=== PATIENT | female | born 1980 ===

== ENCOUNTER 2018-09-24 22:55 | Inpatient (IN) | payer BC ==
[2018-09-24] MEDS ORDERED: OXYTOCIN/RINGERS LACTATE 1,000 ML IV PRN (23:51)
[2018-09-24] MEDS ORDERED: AMMONIA AROMATIC 1 EACH AMP IH PRN (23:51)
[2018-09-24] MEDS ORDERED: IBUPROFEN 600 MG TAB PO PRN (23:51)
[2018-09-24] MEDS ORDERED: MISOPROSTOL 200 MCG TAB PO PRN (23:51)
[2018-09-24] MEDS ORDERED: LIDOCAINE 1% 300 MG/30 ML SDV SC PRN (23:51)
[2018-09-24] MEDS ORDERED: EPSOM SALT 454 GM TP PRN (23:51)
[2018-09-24] MEDS ORDERED: OLIVE OIL 118 ML BTL MISC PRN (23:51)
[2018-09-24] MEDS ORDERED: TERBUTALINE SULFATE 1 MG/ML VIAL IV PRN (23:51)
--- NOTE | 2018-09-24 23:51 | PDGENHP ---
History and Physical History and Physical: Care: [facility] HPI: Julito Chiu is a 37yo with IUP @ 41-2 weeks that presents to L&D from [facility] for SROM with no active labor and desire for pain management. EDC: 09/15/18 which is based on LMP which is known and consistent with Ultrasound at 13 weeks. Her is complicated by: AMA, hypothyroid Review of Systems: Constitutional: Denies any fever, chills, or fatigue HEENT: denies any visual changes, difficulty swallowing, hearing loss Cardiovascular: Denies any chest pain, palpitations, leg swelling Respiratory: denies any cough, wheezing, or shortness of breathe GI: Denies any nausea, vomiting, diarrhea, constipation : denies any dysuria, urgency, frequency, vaginal bleeding Musculoskeletal: denies any muscle or bone pain Skin: denies any rashes Neuro: denies any headache, seizures, lightheadedness, dizziness, or loss of consciousness Psychiatric: denies any depression, anxiety, or SI/HI thoughts HISTORY: Previous OB history: G1 Past medical history: hypothyroid Past surgical history: none Social: Denies any alcohol, tobacco, or drug use. - [employer]; currently PhD student Family history: mother: breast CA Medications: PNV, Synthroid Allergies (list reaction): NKDA LABS: Rh: B+ ABS: Neg Rubella: Immune HbsAg: NR HIV: NR VDRL: NR 1hr: 104 GC: Neg Chlamydia: Neg Pap: Normal GBS: negative PHYSICAL EXAM: Constitutional: WN, A&Ox3 HEENT: normocephalic atraumatic, supple Skin: Warm, dry, intact Heart: RRR, no murmur Chest: CTA-B Abdomen: Soft, nontender, gravid SVE: 1/100/-2 (per CNM at [facility]) Extremities: no edema, negative homans sign Neuro: grossly normal Psych: normal affect assessment: FHT baseline 130 +accels, variable decels, moderate variability Contractions: toco q q6 Assessment: * [id number] with IUP@41-2wks * SROM with no labor * GBS Negative * Cat 1 FHR tracing Plan: * Admit to L&D * pain management PRN * cont EFM * pitocin augmentation * reassess 2-4hr/PRN Today's visit was approximately 30 min, of which >50% of visit 20 min, was spent face to face with pt on direct counseling/coordination of care.
[2018-09-25 00:03] LABS: PLATELET COUNT 210 10^3/uL (150-400)
[2018-09-25] MEDS ORDERED: LR 500 ML IV PRN (00:46)
--- NOTE | 2018-09-25 00:50 | OBPROG ---
Labor Progress Note Assessment/Plan: Assessment: [id number] with IUP@ 41-3wks SROM without labor GBS Negative cat 1 FHR Tracing Plan: AJAY per pt request pitocin per protocol reassess PRN 09/25/18 00:47 Subjective/Intrapartum Course: 09/25/18 00:48 Pt states pain with contractions 11/25, desires AJAY. Agreeable to pitocin augmentation. Objective: 09/24/18 23:50 Patient ABO/Rh B POSITIVE 09/24/18 23:50 - Contraction Pattern Assessment Current Contraction Pattern: Regular - FHR Assessment Begum FHR (bpm): 130 FHR Pattern Variability: Moderate FHR Category: 1 Oxytocin Orders Assessment - Pre-Induction/Augmentation Assessment Gestational Age: 41 week(s) and 3 day(s) ICD10 Worksheet Patient Problems: Problems Problem Status Onset Labor and delivery, indication for care Acute - ICD10 Problem Qualifiers (1) Labor and delivery, indication for care
[2018-09-25] MEDS ORDERED: AMMONIA AROMATIC 1 EACH AMP IH ONE (00:52)
[2018-09-25] MEDS ORDERED: OLIVE OIL 118 ML BTL MISC ONE (00:52)
[2018-09-25] MEDS ORDERED: LIDOCAINE 1% 300 MG/30 ML SDV ONE (00:52)
[2018-09-25] MEDS ORDERED: OXYTOCIN 10 UNIT/ML VIAL ONE (00:53)
[2018-09-25] MEDS ORDERED: TERBUTALINE SULFATE 1 MG/ML VIAL ONE (00:53)
[2018-09-25] MEDS ORDERED: MISOPROSTOL 200 MCG TAB ONE (00:53)
[2018-09-25] MEDS ORDERED: OXYTOCIN/RINGERS LACTATE 500 ML IV SCH (01:00)
[2018-09-25] MEDS ORDERED: fentaNYL 100 MCG/2 ML INJ ONE ×2 (01:13→13:36)
[2018-09-25] MEDS ORDERED: fentaNYL 2MCG/ML/BUP 0.1% RTU 100 ML BAG EP ONE (01:13)
[2018-09-25] MEDS ORDERED: BUPIVACAINE 0.5% 30 ML SDV ONE (01:14)
[2018-09-25] MEDS ORDERED: PHENYLEPHRINE HCL 100 MCG/ML SYR ONE (01:14)
--- NOTE | 2018-09-25 02:18 | PDANEPAE ---
ANE Past Medical History - Pulmonary History Hx Sleep Apnea: No - Endocrine History Hx Diabetes: No - Chronic Pain History Chronic Pain: No ANE Review of Systems Review of Systems: ANE Patient History - Allergies Allergies/Adverse Reactions: Sulfa (Sulfonamide Antibiotics) Allergy (Verified 09/24/18 23:51) - Smoking Hx Smoking Status: Former smoker ANE Labs/Vital Signs - Labs Result Diagrams: 09/24/18 23:50 - Vital Signs Height: 167.64 cm Weight: 97.069 kg ANE Physical Exam - Airway Neck exam: FROM Mallampati Score: Class 2 Mouth exam: normal dental/mouth exam - Pulmonary Pulmonary: no respiratory distress - Cardiovascular Cardiovascular: regular rate and rhythym - ASA Status ASA Status: III ANE Anesthesia Plan Anesthesia Plan: epidural Urgent/Emergent Case: Ailyn patricio completed preop but documented later for safe timely pt care
[2018-09-25] MEDS ORDERED: METOCLOPRAMIDE 10 MG/2 ML VIAL IVP PRN ×2 (02:19→15:28)
[2018-09-25] MEDS ORDERED: PHENYLEPHRINE HCL 100 MCG/ML SYR IVP PRN ×2 (02:19→15:28)
[2018-09-25] MEDS ORDERED: LR 500 ML IV SCH (02:30)
[2018-09-25] MEDS ORDERED: fentaNYL 2MCG/ML/BUP 0.1% RTU 100 ML EP SCH (02:30)
[2018-09-25] MEDS: LR 1,000 ML IV PRN ×2 (02:32)
--- NOTE | 2018-09-25 06:35 | OBPROG ---
Labor Progress Note Assessment/Plan: Strip Check: Baseline 135 +accels, occ variable decels, mod BTBV Pt resting. denies any pain. Subjective/Intrapartum Course: 09/25/18 00:48 Pt states pain with contractions 11/25, desires AJAY. Agreeable to pitocin augmentation. Objective: 09/24/18 23:50 Patient ABO/Rh B POSITIVE 09/24/18 23:50 - Contraction Pattern Assessment Current Contraction Pattern: Regular Oxytocin Orders Assessment - Pre-Induction/Augmentation Assessment Gestational Age: 41 week(s) and 3 day(s) ICD10 Worksheet Patient Problems: Problems Problem Status Onset Labor and delivery, indication for care Acute - ICD10 Problem Qualifiers (1) Labor and delivery, indication for care
--- NOTE | 2018-09-25 06:38 | OBPROG ---
Labor Progress Note Assessment/Plan: Assessment: [id number] with IUP@ 41-3wks pitocin augmentation GBS Negative cat 1 FHR Tracing Plan: pitocin off will restart after 15 min and cat 1 FHR tracing reassess 2hr/PRN anticipate Subjective/Intrapartum Course: 09/25/18 00:48 Pt states pain with contractions 7/10, desires AJAY. Agreeable to pitocin augmentation. 09/25/18 06:37 Pt resting, but is still feeling pain with contractions. She states she was able to sleep throughout the night. Agreeable to placement of IUPC/FSE. Objective: 09/24/18 23:50 Patient ABO/Rh B POSITIVE 09/24/18 23:50 - SVE Dilation (cm): 6 Effacement (%): 100 Station: -1 Membranes: AROM (forebag- MSF noted) Amniotic Fluid Color: Meconium Stained - Contraction Pattern Assessment Current Contraction Pattern: Regular - FHR Assessment Begum FHR (bpm): 135 FHR Pattern Variability: Moderate FHR Category: 1 - Procedures Non-surgical Procedures: FSE (internal monitors placed due to prolong decel), IUPC Oxytocin Orders Assessment - Pre-Induction/Augmentation Assessment Gestational Age: 41 week(s) and 3 day(s) ICD10 Worksheet Patient Problems: Problems Problem Status Onset Labor and delivery, indication for care Acute - ICD10 Problem Qualifiers (1) Labor and delivery, indication for care
--- NOTE | 2018-09-25 08:08 | OBPROG ---
Labor Progress Note Assessment/Plan: Assessment: 37 y/o P0 at 41. weeks ega SROM at 1630 on 09/24 Pitocin augmentation /-1 at 0615 - forebag ruptured at that time - mec stained fluid Comfortable with epidural - sleeping Category 1 EFM at this time - previously had prolonged decel and pitocin was discontinued Pitocin restarted and currently at 4 cms - MVUs not adequate at this time Plan: Will continue to increase pitocin as baby tolerates to achieve adequate MVUs Amnioinfusion if indicated Anticipate 09/25/18 07:58 09/25/18 08:11 Subjective/Intrapartum Course: 09/25/18 00:48 Pt states pain with contractions 11/25, desires AJAY. Agreeable to pitocin augmentation. 09/25/18 06:37 Pt resting, but is still feeling pain with contractions. She states she was able to sleep throughout the night. Agreeable to placement of IUPC/FSE. 09/25/18 08:09 Sleeping with epidural in place providing good pain relief Objective: 09/24/18 23:50 Patient ABO/Rh B POSITIVE 09/24/18 23:50 - SVE Dilation (cm): 6 Effacement (%): 100 Station: -1 Membranes: AROM (forebag- MSF noted) Amniotic Fluid Color: Meconium Stained - Contraction Pattern Assessment Current Contraction Pattern: Regular - Procedures Non-surgical Procedures: FSE (internal monitors placed due to prolong decel), IUPC Oxytocin Orders Assessment - Pre-Induction/Augmentation Assessment Gestational Age: 41 week(s) and 3 day(s) ICD10 Worksheet Patient Problems: Problems Problem Status Onset Labor and delivery, indication for care Acute
--- NOTE | 2018-09-25 09:41 | OBPROG ---
Labor Progress Note Assessment/Plan: Assessment: 37 y/o P0 at 41. weeks ega SROM at 1630 on 09/24 Pitocin augmentation 6/100/-1 at 0615 - forebag ruptured at that time - mec stained fluid Comfortable with epidural - sleeping Category 1 EFM at this time - previously had prolonged decel and pitocin was discontinued Pitocin restarted and currently at 4 cms - MVUs not adequate at this time Plan: Will continue to increase pitocin as baby tolerates to achieve adequate MVUs Amnioinfusion if indicated Anticipate 09/25/18 07:58 09/25/18 08:11 09/25/18 09:29 A/P: MVUs 200 range - called to bedside for variable/late FHT decels X several contractions that improved with position change. SVE 8/100/-1. Will continue to monitor, if decels return and are persistent will consider amnioinfusion. Patient remains comfortable with epidural Subjective/Intrapartum Course: 09/25/18 00:48 Pt states pain with contractions 7/10, desires AJAY. Agreeable to pitocin augmentation. 09/25/18 06:37 Pt resting, but is still feeling pain with contractions. She states she was able to sleep throughout the night. Agreeable to placement of IUPC/FSE. 09/25/18 08:09 Sleeping with epidural in place providing good pain relief Objective: 09/24/18 23:50 Patient ABO/Rh B POSITIVE 09/24/18 23:50 - SVE Dilation (cm): 8 Effacement (%): 100 Station: -1 Membranes: AROM (forebag- MSF noted) Amniotic Fluid Color: Meconium Stained - Contraction Pattern Assessment Current Contraction Pattern: Regular - Procedures Non-surgical Procedures: FSE (internal monitors placed due to prolong decel), IUPC Oxytocin Orders Assessment - Pre-Induction/Augmentation Assessment Gestational Age: 41 week(s) and 3 day(s) ICD10 Worksheet Patient Problems: Problems Problem Status Onset Labor and delivery, indication for care Acute
--- NOTE | 2018-09-25 12:03 | OBPROG ---
Labor Progress Note Assessment/Plan: Assessment: 37 y/o P0 at 41. weeks ega SROM at 1630 on 09/24 Pitocin augmentation 6/100/-1 at 0615 - forebag ruptured at that time - mec stained fluid Comfortable with epidural - sleeping Category 1 EFM at this time - previously had prolonged decel and pitocin was discontinued Pitocin restarted and currently at 4 cms - MVUs not adequate at this time Plan: Will continue to increase pitocin as baby tolerates to achieve adequate MVUs Amnioinfusion if indicated Anticipate 09/25/18 07:58 09/25/18 08:11 09/25/18 09:29 A/P: MVUs 200 range - called to bedside for variable/late FHT decels X several contractions that improved with position change. SVE 8/100/-1. Will continue to monitor, if decels return and are persistent will consider amnioinfusion. Patient remains comfortable with epidural 09/25/18 11:55 A/P: SVE 10/100/0 station. Category 2 efm - continues to have intermittent variable/late decelerations which respond to position change. Variability mod and she is having accels. Pitocin off at this time. Consulted with Dr Martinez. Will try amnioinfusion now and attempt to restart pitocin shortly and begin pushing. If decelerations are persistent, will consider operative vaginal delivery or . POC reviewed with pt per Dr Martinez and myself. She and her verbalize understanding of POC. Subjective/Intrapartum Course: 09/25/18 00:48 Pt states pain with contractions 7/10, desires AJAY. Agreeable to pitocin augmentation. 09/25/18 06:37 Pt resting, but is still feeling pain with contractions. She states she was able to sleep throughout the night. Agreeable to placement of IUPC/FSE. 09/25/18 08:09 Sleeping with epidural in place providing good pain relief 09/25/18 11:55 remains comfortable with epidural Objective: 09/24/18 23:50 Patient ABO/Rh B POSITIVE 09/24/18 23:50 - SVE Dilation (cm): 10 Effacement (%): 100 Station: 0 Membranes: AROM (forebag- MSF noted) Amniotic Fluid Color: Meconium Stained Dilation Complete Date: 09/25/18 Dilation Complete Time: 10:50 - Contraction Pattern Assessment Current Contraction Pattern: Regular - Procedures Non-surgical Procedures: FSE (internal monitors placed due to prolong decel), IUPC Oxytocin Orders Assessment - Pre-Induction/Augmentation Assessment Gestational Age: 41 week(s) and 3 day(s) ICD10 Worksheet Patient Problems: Problems Problem Status Onset Labor and delivery, indication for care Acute
[2018-09-25] MEDS ORDERED: LR 500 ML IV ONE (13:33)
[2018-09-25] MEDS ORDERED: AZITHROMYCIN IV 500 MG in NS 250 ML IV ONE (13:33)
[2018-09-25] MEDS ORDERED: ceFAZolin 2 GM/DEXTROSE 100 ML IV ONE (13:33)
--- NOTE | 2018-09-25 13:37 | OBPROG ---
Labor Progress Note Assessment/Plan: Assessment: I was asked by Precious Dunaway CNM, to consult on Julito's labor. She had started to late late decels as she was progressing to complete and they had needed to turn the Pit off and begin resuscitative measures at the time I was speaking with her and her . Even with Pitocin off we were still seeing late decels following contractions, not recurrent with every contraction, but more than half. Good return to baseline variability between, but definitely concerning decels. I spoke to her and her about the fact that I was worried about how the baby would tolerate turning Pitocin back on, let alone pushing. I discussed options of operative vaginal delivery and and after discussing these options we decided on cesarena, which was my recommendation. Routine preop orders place. Consents reviewed and singed in person before the OR. Ancef and Azithromycin IV. ERAS protocol enacted in coordination with anesthesia. MELVA Subjective/Intrapartum Course: When I met with Julito she was comfortable with epidural. Objective: 09/24/18 23:50 Patient ABO/Rh B POSITIVE 09/24/18 23:50 - SVE Dilation (cm): 10 Effacement (%): 100 Station: 0 Membranes: AROM (forebag- MSF noted) Amniotic Fluid Color: Meconium Stained Dilation Complete Date: 09/25/18 Dilation Complete Time: 10:50 - Contraction Pattern Assessment Current Contraction Pattern: Regular - FHR Assessment Begum FHR (bpm): 145 FHR Pattern Variability: Moderate FHR Category: 2 (Late and variable decels) - Procedures Non-surgical Procedures: FSE (internal monitors placed due to prolong decel), IUPC Oxytocin Orders Assessment - Pre-Induction/Augmentation Assessment Gestational Age: 41 week(s) and 3 day(s) ICD10 Worksheet Patient Problems: Problems Problem Status Onset Labor and delivery, indication for care Acute
[2018-09-25] MEDS: LEVOTHYROXINE 100 MCG TAB PO SCH (13:38)
--- NOTE | 2018-09-25 13:41 | OBPP ---
Progress Note Assessment/Plan: Assessment: 37 y/o P0 at 41. weeks ega SROM at 1630 on 09/24 Pitocin augmentation 6/100/-1 at 0615 - forebag ruptured at that time - mec stained fluid Comfortable with epidural - sleeping Category 1 EFM at this time - previously had prolonged decel and pitocin was discontinued Pitocin restarted and currently at 4 cms - MVUs not adequate at this time Plan: Will continue to increase pitocin as baby tolerates to achieve adequate MVUs Amnioinfusion if indicated Anticipate 09/25/18 07:58 09/25/18 08:11 09/25/18 09:29 A/P: MVUs 200 range - called to bedside for variable/late FHT decels X several contractions that improved with position change. SVE 8/100/-1. Will continue to monitor, if decels return and are persistent will consider amnioinfusion. Patient remains comfortable with epidural 09/25/18 11:55 A/P: SVE 10/100/0 station. Category 2 efm - continues to have intermittent variable/late decelerations which respond to position change. Variability mod and she is having accels. Pitocin off at this time. Consulted with Dr Martinez. Will try amnioinfusion now and attempt to restart pitocin shortly and begin pushing. If decelerations are persistent, will consider operative vaginal delivery or . POC reviewed with pt per Dr Martinez and myself. She and her verbalize understanding of POC. 09/25/18 13:20 FHTs Category 2 with persistent late decelerations for the last 30 minutes despite position changes, amnioinfusion and discontinuing pitocin. Dr Martinez notified and counseled patient regarding recommendation for C- section. See consult note. Terbutaline given. Objective: 09/24/18 23:50 Patient ABO/Rh B POSITIVE 09/24/18 23:50
--- NOTE | 2018-09-25 13:43 | OBPROG ---
Labor Progress Note Assessment/Plan: Assessment: Plan: 09/25/18 13:20 FHTs Category 2 with persistent late decelerations for the last 30 minutes despite position changes, amnioinfusion and discontinuing pitocin. Dr Martinez notified and counseled patient regarding recommendation for C- section. See consult note. Terbutaline given. Subjective/Intrapartum Course: 09/25/18 00:48 Pt states pain with contractions 7/10, desires AJYA. Agreeable to pitocin augmentation. 09/25/18 06:37 Pt resting, but is still feeling pain with contractions. She states she was able to sleep throughout the night. Agreeable to placement of IUPC/FSE. 09/25/18 08:09 Sleeping with epidural in place providing good pain relief 09/25/18 11:55 remains comfortable with epidural Objective: 09/24/18 23:50 Patient ABO/Rh B POSITIVE 09/24/18 23:50 - SVE Membranes: AROM (forebag- MSF noted) Amniotic Fluid Color: Meconium Stained Dilation Complete Date: 09/25/18 Dilation Complete Time: 10:50 - Contraction Pattern Assessment Current Contraction Pattern: Regular - Procedures Non-surgical Procedures: FSE (internal monitors placed due to prolong decel), IUPC Oxytocin Orders Assessment - Pre-Induction/Augmentation Assessment Gestational Age: 41 week(s) and 3 day(s) ICD10 Worksheet Patient Problems: Problems Problem Status Onset Labor and delivery, indication for care Acute
[2018-09-25] MEDS ORDERED: CITRIC ACID/SODIUM CITRATE 30 ML UDCUP PO ONE (13:44)
[2018-09-25] MEDS ORDERED: ACETAMINOPHEN 500 MG TAB PO ONE (13:44)
[2018-09-25] MEDS ORDERED: RANITIDINE 50 MG/2 ML VIAL ONE (13:47)
[2018-09-25] MEDS ORDERED: METOCLOPRAMIDE 10 MG/2 ML VIAL ONE (13:47)
[2018-09-25] MEDS ORDERED: OXYTOCIN 100 UNITS/10 ML VIAL ONE (14:44)
[2018-09-25] MEDS ORDERED: ONDANSETRON 4 MG/2 ML VIAL ONE (14:44)
[2018-09-25] MEDS ORDERED: morphINE PF 5 MG/10 ML INJ ONE (14:51)
[2018-09-25] MEDS ORDERED: MEPERIDINE 25 MG/0.5 ML AMP IVP PRN (15:28)
[2018-09-25] MEDS ORDERED: NALOXONE HCL 0.4 MG/ML INJ IVP PRN (15:28)
[2018-09-25] MEDS ORDERED: ONDANSETRON 4 MG/2 ML VIAL IVP PRN ×2 (15:28)
[2018-09-25] MEDS ORDERED: fentaNYL 100 MCG/2 ML INJ IVP PRN (15:28)
--- NOTE | 2018-09-25 15:28 | POSTANESTH ---
Post Anesthetic Evaluation Cardiovascular Status: Similar to Pre-Op Cond Respiratory Status: Similar to Pre-op Cond. Level of Consciousness/Mental Status: Alert and Oriented Pain Control: Adequate, Prn Tx Ordered Nausea/Vomiting Control: Adequate, Prn Tx Ordered Complications Possibly Related to Anesthesia: None Noted
[2018-09-25] MEDS: KETOROLAC 30 MG/1 ML SDV IVP SCH ×2 (16:40→22:36)
[2018-09-25] MEDS ORDERED: KETOROLAC 30 MG/1 ML SDV ONE (17:16)
[2018-09-25] MEDS ORDERED: PROMETHAZINE HCL 25 MG/ML INJ IVP PRN (17:58)
[2018-09-25] MEDS ORDERED: LACTULOSE 20 GM/30 ML UDCUP PO PRN (17:58)
[2018-09-25] MEDS ORDERED: BISACODYL 10 MG SUPP PR PRN (17:58)
[2018-09-25] MEDS ORDERED: MAGNESIUM HYDROXIDE 30 ML UDCUP PO PRN (17:58)
[2018-09-25] MEDS ORDERED: POLYETHYLENE GLYCOL 3350 17 GM PKT PO PRN (17:58)
[2018-09-25] MEDS ORDERED: oxyCODONE IR 5 MG TAB PO PRN (17:58)
--- NOTE | 2018-09-25 18:07 | POSTOPPROG ---
Post Op Note Date of Operation: 09/25/18 Surgeon: Wesley Martinez [employer] Technician: Maddi Cuevas Anesthesiologist: Pradeep Anesthesia: Epidural Pre-op Diagnosis: intollerance of labor Post-op Diagnosis: Same, thick meconium Procedure: PLTCS Findings: OA, thick meconium Inf/Abcess present in the surg proc area at time of surgery?: No EBL: 500-1000 (700cc) Complications: None Specimen(s): Cord blood gasses sent, placenta also sent to path
--- NOTE | 2018-09-25 18:08 | SUROPNOTE ---
ALPHONSE Operative Report - Surgery Date of Operation: 09/25/18 Surgeon: Wesley aMrtinez Radar Operator: Maddi Cuevas Anesthesiologist: Pradeep Anesthesia: Epidural Pre-op Diagnosis: intolerance of labor Post-op Diagnosis: Same, thick meconium Procedure: PLTCS Findings: OA, thick meconium Inf/Abcess present in the surg proc area at time of surgery?: No EBL: 500-1000 (700cc) Complications: None Specimen(s): Cord blood gasses sent, placenta also sent to path Technique: The patient was taken to the OR where epidural was dosed and anesthesia found to be adequate. The patient was then positioned supine with a leftward tilt and a time-out was performed. She was given weight-based antibiotics (Ancef and Azithromycin) prior to skin incision. The abdomen was prepped and draped in normal sterile fashion. A Pfannenstiel skin incision was made with the scalpel and carried down to the fascia. The fascia was incised in the midline and the incision extended bilaterally sharply with scissors. The fascia was dissected off of the underlying rectus muscles superiorly and inferiorly also sharply using scissors. The rectus were in the midline and the peritoneum identified and entered bluntly without issue. The peritoneal incision was extended and the bladder blade was then placed. The vesicouterine junction was identified and a bladder flap created sharply and developed bluntly. A transverse incision was made with the scalpel in the lower uterine segment and extended with cephalad and caudad traction on the incision edges. The head was encountered and easily elevated out of the pelvis and delivered atraumatically, followed by the shoulders and body. The nose and mouth were bulb suctioned. We did wait for 60 seconds before clamping and cutting the cord and then the infant was handed to pediatric staff. Cord blood gases were sent and the placenta was sent to pathology. The uterus was then exteriorized and carefully wiped of all debris. The uterus was closed in two layers - the first layer was running with 180 0-vloc and the second a vertical imbricating layer using 0-vicryl. The gutters were cleared of all clots. The uterine incision was reinspected and found to be hemostatic. The uterus was then returned to the abdomen. The fascia was elevated and the rectus muscles and subcutaneous tissues were found to be hemostatic. The fascia was closed with a running 0-Vicryl - single suture. The subcutaneous tissues were irrigated and hemostasis obtained. The subcutaneous space was closed with interrupted sutures of 2-0 vicryl. The skin was closed with 4-0 vloc undyed and then covered with Medipore dressing. The patient tolerated the procedure and was taken to recovery in stable condition. Lap, needle, sponge, and instrument count were announced as correct times two. I was present and scrubbed for the entire case.
--- NOTE | 2018-09-25 18:11 | OBDEL ---
Info Type: Primary Presentation at Delivery: Vertex L&D Analgesia/Anesthesia Type: Epidural GBS+: No Intrapartum Medications: Generic Name Dose Route Start Last Admin Trade Name Freq PRN Reason Stop Dose Admin Lactated Ringer's 1,000 mls @ 0 mls/hr 09/24/18 23:51 09/25/18 02:32 Lr IV 09/25/18 23:50 1,000 mls PRN PRN Administration SEE PROTOCOL CONDITIONS Protocol Per Protocol Oxytocin/Lactated Ringer's 500 mls @ 0 mls/hr 09/25/18 01:00 09/25/18 02:28 Pitocin 30 Units/Lr (Premix) IV 03/24/19 00:59 500 mls CONT ROSY Administration Protocol Per Protocol Levothyroxine Sodium 100 mcg 09/25/18 06:00 09/25/18 13:38 Synthroid PO 03/24/19 05:59 100 mcg DAILY AT 6AM ROSY Administration Terbutaline Sulfate 0.25 mg 09/24/18 23:51 09/25/18 13:37 Brethine IV 03/23/19 23:50 0.25 mg ONCE PRN Administration Tachysystole Discontinued Medications Generic Name Dose Route Start Last Admin Trade Name Abhijit PRN Reason Stop Dose Admin Acetaminophen 1,000 mg 09/25/18 13:44 09/25/18 13:56 Tylenol PO 09/25/18 13:45 1,000 mg ONCE ONE Administration Citric Acid/Sodium Citrate 30 ml 09/25/18 13:44 09/25/18 13:56 Bicitra PO 09/25/18 13:45 30 ml ONCE ONE Administration Cefazolin Sodium/Dextrose 100 mls @ 200 mls/hr 09/25/18 13:33 09/25/18 13:57 Ancef IV 09/25/18 14:02 100 mls ONCALL ONE Administration Protocol - Hospital Course Intrapartum: 09/25/18 00:48 Pt states pain with contractions 11/25, desires AJAY. Agreeable to pitocin augmentation. 09/25/18 06:37 Pt resting, but is still feeling pain with contractions. She states she was able to sleep throughout the night. Agreeable to placement of IUPC/FSE. 09/25/18 08:09 Sleeping with epidural in place providing good pain relief 09/25/18 11:55 remains comfortable with epidural Indications for Delivery: Spontaneous Labor Vaginal Delivery - Labor and Delivery Onset of Contractions Date: 09/23/18 Onset of Contractions Time: 21:30 Rupture of Membranes Date: 09/24/18 Rupture of Membranes Time: 16:30 Amniotic Fluid Color: Meconium Stained Dilation Complete Date: 09/25/18 Dilation Complete Time: 10:50 Placenta Delivery Date: 09/25/18 Placenta Delivery Time: 14:40 Total Hours of Labor: 41 Non-surgical Procedures: FSE (internal monitors placed due to prolong decel), IUPC Cord Gases: Cord Gases Cord Blood PCO2 50.1 mmHg (37-60) 09/25/18 14:42 Cord Base Excess -4.6 mEq/L (-13.6--3.2) 09/25/18 14:42 Cord ABG pH 7.28 (7.10-7.37) 09/25/18 14:42 Cord VBG pH 7.34 (7.20-7.42) 09/25/18 14:42 Operative Report - Delivery Pre-op Diagnoses: intollerance of labor Post-op Diagnoses: Same, Thick meconium History of Prior Section: No Nulliparous Prior to Delivery: No Indications for Current Section: Non-reas. Status Procedure: Unscheduled Surgeon: Wesley Martinez Patient Assistant: Precious Dunaway ([facility]) Anesthesiologist: Dylan Fernández Complications: None Findings: Thick meconium, direct OA position Specimen(s)/Path: Placenta EBL: 700 Cord Gases: Cord Gases Cord Blood PCO2 50.1 mmHg (37-60) 09/25/18 14:42 Cord Base Excess -4.6 mEq/L (-13.6--3.2) 09/25/18 14:42 Cord ABG pH 7.28 (7.10-7.37) 09/25/18 14:42 Cord VBG pH 7.34 (7.20-7.42) 09/25/18 14:42 [place] Data JEREMY: 09/15/18 Gestational Age: 41 week(s) and 3 day(s) Begum Delivery Date: 09/25/18 Delivery Time: 14:39 Sex of : Male Score (1 Min): 8 Score (5 Min): 9 ICD10 Worksheet Patient Problems: Problems Problem Status Onset intolerance to labor, delivered, current hospitalization Acute Labor and delivery, indication for care Acute S/P primary low transverse Acute - ICD10 Problem Qualifiers (1) S/P primary low transverse (2) intolerance to labor, delivered, current hospitalization
[2018-09-25] MEDS: ONDANSETRON 4 MG/2 ML VIAL IVP PRN ×2 (19:38→23:42)
[2018-09-25] MEDS: ACETAMINOPHEN 325 MG TAB PO SCH (21:00)
[2018-09-25] MEDS: SENNOSIDES/DOCUSATE SODIUM TAB PO SCH (21:00)
[2018-09-25] MEDS: LR 1,000 ML IV SCH (22:41)
[2018-09-26] MEDS: ACETAMINOPHEN 325 MG TAB PO SCH ×4 (03:00→22:53)
[2018-09-26] MEDS: KETOROLAC 30 MG/1 ML SDV IVP SCH ×2 (04:45→10:58)
[2018-09-26] MEDS: LR 1,000 ML IV SCH (04:49)
[2018-09-26] MEDS: LEVOTHYROXINE 100 MCG TAB PO SCH (06:28)
--- NOTE | 2018-09-26 10:18 | OBPP ---
Progress Note Assessment/Plan: Assessment: 37 y/o P1 s/p primary 2/2 intolerance to labor POD # 1 with support Plan: Routine post op care Will check CBC today 09/25/18 13:20 FHTs Category 2 with persistent late decelerations for the last 30 minutes despite position changes, amnioinfusion and discontinuing pitocin. Dr Martinez notified and counseled patient regarding recommendation for C- section. See consult note. Terbutaline given. 09/27/18 11:02 Subjective/ Course: Patient is doing well this morning. Tolerating regular diet. Dressing dry/ intact. Vaginal bleeding wnl. Pain well controlled with Toradol. Newby catheter still in place. Had some nausea during the night, but feeling better now. going well with support. 09/27/18 10:54 Objective: 09/24/18 23:50 Patient ABO/Rh B POSITIVE 09/24/18 23:50 Temp Pulse Resp BP Pulse Ox 36.7 C 83 20 101/62 97 09/26/18 04:30 09/26/18 06:30 09/26/18 06:30 09/26/18 04:30 09/26/18 06:30 Uterine Position/Fundal Height: At Umbilicus Uterine Tone: Firm Physical Exam - Physical Exam EENT: PERRL/EOMI Neck: non-tender Respiratory: normal breath sounds Cardiac/Chest: normal peripheral pulses, regular rate, rhythm Abdomen: hypoactive bowel sounds, flatus, dressing (dry/intact) Extremities: normal range of motion, pedal edema Back: Normal inspection Skin: normal color, warm/dry Neuro/Psych: no motor/sensory deficits, alert, normal mood/affect, oriented x 3
[2018-09-26] MEDS: SENNOSIDES/DOCUSATE SODIUM TAB PO SCH ×2 (10:57→22:53)
--- NOTE | 2018-09-26 11:06 | PDPAINCON ---
Pain Management Consultation Patient referred by Dr.: Washington Reddy - Subjective Pain is: low, well controlled Activity: able to ambulate - Objective Technique: spinal opioid Sensory and motor exam: block has resolved, no apparent ill effects Vital signs: stable - Assessment/Plan Assessment/Plan: other (Pt doing well s/p AJAY then C/S with epidural duramorph injection)
[2018-09-26 12:54] LABS: PLATELET COUNT 132 10^3/uL (150-400)
[2018-09-26] MEDS: IBUPROFEN 600 MG TAB PO SCH ×2 (16:52→22:53)
--- NOTE | 2018-09-26 20:47 | OBPP ---
Progress Note Assessment/Plan: Assessment: 37 yo g1001 pod# 1 s/p PLTCS for intolerance of labor breast feeding uncomplicated post operative and post course Plan: 09/26/18 20:44 Subjective/ Course: 09/26/18 20:45 patient is doing well. pain is well controlled. normal lochia. denies headache and changes in vision. bautista just removed. ambulating. passing gas. woeking on breast feeding. no concerns. surgical questions answered. Objective: 09/26/18 12:25 Patient ABO/Rh B POSITIVE 09/24/18 23:50 Temp Pulse Resp BP Pulse Ox 36.8 C 81 16 110/62 93 09/26/18 17:03 09/26/18 17:03 09/26/18 17:03 09/26/18 17:03 09/26/18 17:03 Physical Exam - Physical Exam Neck: non-tender, full range of motion Respiratory: chest non-tender, normal breath sounds Cardiac/Chest: normal peripheral pulses, regular rate, rhythm Abdomen: normal bowel sounds, non-tender, other (fundus firm and non tender) Extremities: normal range of motion, non-tender, normal inspection, normal capillary refill Skin: normal color, warm/dry, other (incision clean dry and intact) Neuro/Psych: no motor/sensory deficits, alert, normal mood/affect, oriented x 3
[2018-09-27] MEDS: LEVOTHYROXINE 100 MCG TAB PO SCH (05:11)
[2018-09-27] MEDS: ACETAMINOPHEN 325 MG TAB PO SCH ×4 (05:31→23:32)
[2018-09-27] MEDS: IBUPROFEN 600 MG TAB PO SCH ×4 (05:31→23:32)
--- NOTE | 2018-09-27 11:22 | OBGCSDC ---
General Delivery Information - General Info : 1 Para: 1 Abortions: 0 Type: Primary L&D Analgesia/Anesthesia Type: Epidural Admission Date: 09/24/18 Labs: Patient ABO/Rh B POSITIVE 09/24/18 23:50 Hct 28.5 % (38.0-47.0) L 09/26/18 12:25 - Hospital Course Intrapartum: 09/25/18 00:48 Pt states pain with contractions 11/25, desires AJAY. Agreeable to pitocin augmentation. 09/25/18 06:37 Pt resting, but is still feeling pain with contractions. She states she was able to sleep throughout the night. Agreeable to placement of IUPC/FSE. 09/25/18 08:09 Sleeping with epidural in place providing good pain relief 09/25/18 11:55 remains comfortable with epidural : Patient is doing well this morning. Tolerating regular diet. Dressing dry/ intact. Vaginal bleeding wnl. Pain well controlled with Toradol. Newby catheter still in place. Had some nausea during the night, but feeling better now. going well with support. 09/27/18 10:54 09/27/18 11:05 S) Pt doing well, reports min pain and bleeding. She is ambulating, passing gas and voiding without difficulty.Tolerating regular diet. No BM yet, but passing gas. She is . She desires discharge home today. O) VSS, afebrile constitutional: WNWF, A&Ox3 HEENT: normocephalic, atraumatic, supple Heart: RRR, No murmur Chest: CTA-B Abdomen: Soft, nontender Uterus: Firm at U-2 Lochia: Minimal rubra Perineum: Intact Incision: healing well - well approximated Extremities: Trace edema, and negative Paul's sign Neuro: Grossly normal A)37 year-old P1 S/P primary for intolerance POD#2 Anemia P) Discharge home today Continue BID ferrous sulfate Reviewed incision care Pelvic rest x6wks Discussed danger signs (infection, preeclampsia, depression, heavy bleeding, etc) RTO in 1 week for incision check, 4/6 weeks 09/27/18 11:39 Vaginal - Diagnosis Amniotic Fluid Color: Meconium Stained - Procedures Non-surgical Procedures: FSE (internal monitors placed due to prolong decel), IUPC - Delivery Providers Surgeon: Wesley Martinez [employer] Tender: Precious Dunaway ([facility]) Anesthesiologist: Dylan Fernández - Delivery Indications for Current Section: Non-reas. Status Non-surgical Procedures: FSE (internal monitors placed due to prolong decel), IUPC Surgical Procedures: Unscheduled Intra-op Complications: None EBL: 700 [place] Data JEREMY: 09/15/18 Gestational Age: 41 week(s) and 5 day(s) Begum Delivery Date: 09/25/18 Delivery Time: 14:39 Sex of Infant: Male Weight (gm): 3694 kg Score (1 Min): 8 Score (5 Min): 9 Discharge Information - Discharge Information Prescriptions: oxyCODONE IR [Oxycodone Ir (*)] 5 - 10 mg PO Q4HRS PRN #10 tab PRN Reason: Pain, Severe Able To Take Po Ferrous Sulfate [Ferrous Sulf 325 MG (*)] 325 mg PO BID #60 tab Ibuprofen [Motrin (*)] 600 mg PO Q6H #40 tab Sennosides/Docusate Sodium [Senokot-S] 1 - 2 tab PO BID #60 tab Condition: Good
[2018-09-27] MEDS: SENNOSIDES/DOCUSATE SODIUM TAB PO SCH ×2 (15:41→21:59)
[2018-09-27] MEDS: FERROUS SULFATE 325 MG TAB PO SCH ×2 (17:31→21:59)
[2018-09-27] MEDS: SIMETHICONE 80 MG TAB CHEW PO PRN (22:02)
[2018-09-28] MEDS: ACETAMINOPHEN 325 MG TAB PO SCH ×2 (05:32→11:27)
[2018-09-28] MEDS: IBUPROFEN 600 MG TAB PO SCH ×2 (05:32→11:27)
[2018-09-28] MEDS: LEVOTHYROXINE 100 MCG TAB PO SCH (05:32)
[2018-09-28] MEDS: FERROUS SULFATE 325 MG TAB PO SCH (10:20)
[2018-09-28] MEDS: SENNOSIDES/DOCUSATE SODIUM TAB PO SCH (10:20)
[2018-09-28 10:39] VITALS: BP 125/67
[2018-09-28] MEDS: SIMETHICONE 80 MG TAB CHEW PO PRN (11:27)
== END 2018-09-28 12:32 | disposition home or self-care (01) | DRG 788 ==
LOC: FLD 22:55 → OBSVTOIN 23:52 → FLD 09-25 14:28 → FOB 09-25 17:45
PROVIDERS: ADMIT Advanced Practice Midwife; ATTEND Advanced Practice Midwife
PROC: 3E033VJ Introduction of Other Hormone into Peripheral Vein, Percutaneous Approach (ICD-10-PCS; 2018-09-24)
PROC: 10D00Z1 Extraction of Products of Conception, Low, Open Approach (ICD-10-PCS; principal; 2018-09-25)
DX: O76 Abnormality in fetal heart rate and rhythm complicating labor and delivery (principal); Z37.0 Single live birth; O48.0 Post-term pregnancy; Z3A.41 41 weeks gestation of pregnancy; O99.284 Endocrine, nutritional and metabolic diseases complicating childbirth; E03.9 Hypothyroidism, unspecified
CPT/HCPCS: J0456; J0690; J1885; J2274; J2370; J2405; J2590; J2765; J2780; J3010; J3105

== ENCOUNTER 2018-09-30 21:16 | Inpatient (IN) | payer BC ==
[2018-09-30 22:29] LABS: PLATELET COUNT 212 10^3/uL (150-400)
[2018-09-30] MEDS ORDERED: CALCIUM GLUC 10% 1 GM/10 ML VIAL IVP PRN (22:55)
[2018-09-30] MEDS ORDERED: MAGNESIUM SULF 4 GM/WATER 100 ML IV ONE (22:55)
[2018-09-30] MEDS ORDERED: PROMETHAZINE HCL 25 MG/ML INJ IVP PRN (22:59)
[2018-09-30] MEDS ORDERED: oxyCODONE IR 5 MG TAB PO PRN (22:59)
[2018-09-30] MEDS ORDERED: ONDANSETRON 4 MG/2 ML VIAL IVP PRN (23:02)
[2018-09-30] MEDS: IBUPROFEN 600 MG TAB PO SCH (23:07)
[2018-09-30] MEDS: Mag Sulf 500 ML IV SCH (23:08)
[2018-09-30] MEDS: ACETAMINOPHEN 325 MG TAB PO SCH (23:34)
--- NOTE | 2018-09-30 23:40 | GHP ---
[f rep st] PREOP HISTORY AND PHYSICAL DATE OF ADMISSION: 09/30/2018 ADMITTING DIAGNOSIS: preeclampsia. HISTORY OF PRESENT ILLNESS: The patient is a 37-year-old, 1, now para 1-0-0-1, who is postop day 5 status post a primary low transverse section secondary to intolerance of labor. She is a patient who received her care at [facility] [place], and she was transferred to [facility] secondary to spontaneous rupture of membranes without evidence of acti ve labor. She had augmentation of labor with Pitocin and epidural for pain management and underwent an uncomplicated lower transverse section secondary to intolerance of labor and thick meconium. The patient had a normal postop course and had normal blood pressures throughout her posto p period ranging in the 100s/50s, 125/67, 120/72 for the entire 4 days, and she was discharged home o n September 28. She was seen by her midwives from the [facility] and was found to have mildly elevated blood pressures on the with systolics in the 140s range. She denies headache, scotomata, right upper quadrant pain, and she was followed up the following day. Today, her blood pressures were con tinuing to worsen. She had in the 160s/80s and 180s/high 80s and some diastolics in the 90s. It was recommended that she come back to [facility] for management of preeclamps ia. Currently, she denies headache, scotomata or right upper quadrant pain. She has been saying she does not feel well in general, but felt like it was normal recovery from surgery as well as the nurs ing and being sleep deprived. She cannot point to specific problems. She is complaining of signific ant pedal edema and feeling swollen in her face and upper extremities as well and having difficulty w alking and getting comfortable while sleeping because of her edema. No shortness of breath, chest pa in, fever, chills, or any other symptoms. Her pain has been well controlled with ibuprofen and Tylenol and is gradually improving. She has been urinating normally and had normal bowel moveme nts. She is working on nursing. Feels like her milk supply is increasing and improving. They are s till working on the baby's latch, but baby is overall doing well. OBSTETRICAL HISTORY: This is her first . Again, she delivered a viable baby boy via C-sect ion for intolerance to labor. Apgars were 8 and 9. Cord blood gases were normal. w as uncomplicated. PAST MEDICAL HISTORY: The patient's only significant past medical history is hypothyroidism. She is on Synthroid 100 mcg daily. PAST SURGICAL HISTORY: She had no past surgical history prior to the . SOCIAL HISTORY: She is . She lives with her . She is currently a PhD student. She d enies tobacco, alcohol, tobacco, or drug use. FAMILY HISTORY: Significant for mother with breast cancer. ALLERGIES: She has no known drug allergies. MEDICATIONS: Include vitamins, ibuprofen and Tylenol and her Synthroid. LABS: Were normal. She is B positive. REVIEW OF SYSTEMS: Again negative except for pertinent positives as above in HPI. PHYSICAL EXAMINATION: VITAL SIGNS: Currently blood pressures are ranging from 157-180/78-98. GENER AL: She is a well-developed, well-nourished, edematous white female, in no acute distress. LUNGS: Clear to auscultation bilaterally. HEART: Regular rate and rhythm. No murmur. ABDOMEN: Soft, non distended. Normal bowel sounds. Uterine fundus is firm. Umbilicus -2. Her incision is clean, dry, and intact. No erythema or edema on her incision, and she has negative Salmon sign. EXTREMITIES: She has 2 to 3+ pitting edema to her upper shins. NEUROLOGICAL: Her DTRs are 2+ over 3+ and she has 1-beat of clonus. LABS: White blood cells 9.53, hemoglobin 10.1, hematocrit 29.2, platelets 212, BUN 15, creatinine 0. 6, uric acid 3.5, AST 18, ALT 37, LDH 567. Her urine creatinine 52.5, total protein is 26, giving a P:C ratio of 0.450. ASSESSMENT AND PLAN: 37-year-old G 1, now P 1-0-0-1, postop day 5 status post a lower transverse rigoberto arean section secondary to intolerance to labor, admitted for pre-eclampsia by blood pressure criteria. The patient will be started on magnesium sulfate for seizure prophylaxis. She u nderstands that she will need to be n.p.o. and have a Newby catheter placed and have strict ins and o uts monitored. We will give her some ibuprofen and Tylenol and Oxy as needed for pain, as well as he r Synthroid and iron. Her is present and will help care for the baby, and we will help her w ith and monitor her symptoms closely. /[id number]/MODL
[2018-10-01] MEDS: IBUPROFEN 600 MG TAB PO SCH ×3 (05:16→18:44)
[2018-10-01] MEDS: ACETAMINOPHEN 325 MG TAB PO SCH ×3 (05:16→18:43)
[2018-10-01] MEDS ORDERED: LEVOTHYROXINE 100 MCG TAB PO SCH (06:00)
--- NOTE | 2018-10-01 08:54 | PDMN ---
Medical Necessity Medical necessity: Pt meets inpt criteria per MD order and [facility] M-[id number], Hypertensive Disorders of , inpt adm indicated for: ALEXIS and SBP greater than or equal to 160 mm Hg or DBP greater than or equal to 110 mm Hg on 2 occasions at least 4 hours apart while patient is at bed rest (unless antihypertensive therapy is initiated before this time): initial BP's last nt at 21:30 and 22:00 were 160/79 and 180/86, on bed rest, NPO, Mg sulfate gtt started last nt, 135/68 this AM- cont on Mg sulfate gtt til 11PM tonight, headache this AM. 37 y/o POD #5 s/p admitted for post- pre- eclampsia by bl pressure crtiteria, anticipate>2MN for ongoing eval/management of above.
[2018-10-01] MEDS: Mag Sulf 500 ML IV SCH ×2 (09:34→19:14)
--- NOTE | 2018-10-01 11:21 | OBPP ---
Progress Note Assessment/Plan: Assessment: 37 y/o G1 now P1 s/p 1LTCS secondary to intolerance to labor POD #6 admitted with preeclampsia HD #1 Plan: Cont MgSO4 x24 hours, will discontinue at 2300 this pm-pt nikko well Pt is diuresing well; UO: 200 cc/hr Mild occipital ALEXIS-relieved with Tylenol and no other symptoms PIH labs wnl; P:C 0.45 BPs stable: mostly 120/60-70's and highest 147/81 Will cont to monitor closely with strict I&Os, NPO except for meds Plan for d/c home in am 09/02 if BPs remain stable 10/01/18 11:12 Subjective/ Course: 10/01/18 11:21 Pt seen and examined. Just finished BF and its going much better. Nikko MgSO4 so far, pt notes some grogginess and is c/o ALEXIS this am; she did have relief with Tylenol earlier this morning and now occipital ALEXIS is back. She denies any visual changes or any RUQ/epigastric pain. Pain is well controlled with Ibu and Tylenol. Mild lochia. She is taking iron for anemia. Diuresing well. NPO except meds. Objective: 09/30/18 22:15 09/30/18 22:15 Uric Acid 3.5 mg/dL (2.5-6.8) 09/30/18 22:15 Total Bilirubin 0.3 mg/dL (0.1-1.4) 09/30/18 22:15 Conjugated Bilirubin 0.3 mg/dL (0.0-0.5) 09/30/18 22:15 Unconjugated Bilirubin 0.0 mg/dL (0.0-1.1) 09/30/18 22:15 AST 18 IU/L (14-46) 09/30/18 22:15 ALT 37 IU/L (9-52) 09/30/18 22:15 Lactate Dehydrogenase 567 IU/L (313-618) 09/30/18 22:15 Uterine Position/Fundal Height: Umbilicus -2 Uterine Tone: Firm Physical Exam - Physical Exam General Appearance: WD/WN, alert, no apparent distress Respiratory: lungs clear, normal breath sounds Cardiac/Chest: regular rate, rhythm Abdomen: normal bowel sounds, non-tender, soft, incision (C/D/I) Extremities: non-tender, pedal edema DTR- Lower Extremities: Plantar (R): 2+, Plantar (L): 2+ Skin: warm/dry, pallor Neuro/Psych: alert, normal mood/affect, oriented x 3
[2018-10-01] MEDS: FERRO-SEQUELS 65 MG TAB.ER PO SCH ×2 (11:56→11:57)
[2018-10-02] MEDS: ACETAMINOPHEN 325 MG TAB PO SCH ×2 (01:51→08:05)
[2018-10-02] MEDS: IBUPROFEN 600 MG TAB PO SCH ×2 (01:52→08:04)
--- NOTE | 2018-10-02 07:50 | OBPP ---
Progress Note Assessment/Plan: Assessment: pod# & s/p PLTCS pp preeclampsia - bp stable off mag breast feeding Plan: 10/02/18 07:47 Subjective/ Course: 10/01/18 11:21 Pt seen and examined. Just finished BF and its going much better. Zulema MgSO4 so far, pt notes some grogginess and is c/o ALEXIS this am; she did have relief with Tylenol earlier this morning and now occipital ALEXIS is back. She denies any visual changes or any RUQ/epigastric pain. Pain is well controlled with Ibu and Tylenol. Mild lochia. She is taking iron for anemia. Diuresing well. NPO except meds. 10/02/18 07:48 patient is doing well. feels fine off magnesium. denies headache and changes in vision. ambulating. passing gas. no pain. breast feeding is going well. long discussion about preeclampsia, post preeclampsia and next . ready to go home. pih precautions and follow up instructions reviewed. Objective: 09/30/18 22:15 09/30/18 22:15 Uric Acid 3.5 mg/dL (2.5-6.8) 09/30/18 22:15 Total Bilirubin 0.3 mg/dL (0.1-1.4) 09/30/18 22:15 Conjugated Bilirubin 0.3 mg/dL (0.0-0.5) 09/30/18 22:15 Unconjugated Bilirubin 0.0 mg/dL (0.0-1.1) 09/30/18 22:15 AST 18 IU/L (14-46) 09/30/18 22:15 ALT 37 IU/L (9-52) 09/30/18 22:15 Lactate Dehydrogenase 567 IU/L (313-618) 09/30/18 22:15 Physical Exam - Physical Exam Neck: non-tender, full range of motion, supple Respiratory: chest non-tender, lungs clear Cardiac/Chest: normal peripheral pulses, regular rate, rhythm Abdomen: normal bowel sounds, non-tender, other (fundus firm and non tender) Extremities: normal range of motion, non-tender, normal inspection, normal capillary refill Skin: normal color, warm/dry, other (incicison clean dry and intact) Neuro/Psych: no motor/sensory deficits, alert, normal mood/affect, oriented x 3
[2018-10-02] MEDS: FERRO-SEQUELS 65 MG TAB.ER PO SCH (08:06)
== END 2018-10-02 09:00 | disposition home or self-care (01) | DRG 776 ==
LOC: FLD 21:16 → OBSVTOIN 23:02
PROVIDERS: ADMIT Obstetrics & Gynecology; ATTEND Obstetrics & Gynecology
DX: O14.95 Unspecified pre-eclampsia, complicating the puerperium (principal); O99.03 Anemia complicating the puerperium
CPT/HCPCS: G0463; J0610; J3475